=== PATIENT | female | born 1985 | race Caucasian/White ===

== ENCOUNTER 2024-09-01 18:02 | Emergency (ER) | payer BC ==
[2024-09-01 18:28] LABS: BASOPHILS ABSOLUTE AUTO 0.04 K/uL (0.00-0.20); BASOPHILS PERCENT AUTO 0.5 % (0.0-2.0); EOSINOPHILS ABSOLUTE AUTO 0.22 K/uL (0.00-0.50); EOSINOPHILS PERCENT AUTO 2.6 % (0.0-5.0); IMMATURE GRAN ABSOLUTE AUTO 0.01 10^3/uL (0.00-0.04); IMMATURE GRAN PERCENT AUTO 0.1 % (0.0-0.4); LYMPHOCYTES ABSOLUTE AUTO 1.81 K/uL (0.50-3.50); LYMPHOCYTES PERCENT AUTO 21.0 % (10.0-50.0); MONOCYTES ABSOLUTE AUTO 0.48 K/uL (0.00-1.00); MONOCYTES PERCENT AUTO 5.6 % (2.0-14.0); NEUTROPHILS ABSOLUTE AUTO 6.05 K/uL (1.40-7.00); NEUTROPHILS PERCENT AUTO 70.2 % (45.0-80.0); PLATELET COUNT,PLT 345 K/uL (150-350); RED BLOOD CELL COUNT 4.15 M/uL (3.77-5.09); RED CELL DISTRIBUTION WIDTH 13.0 % (11.2-14.1); WHITE BLOOD CELL COUNT,WBC 8.6 K/uL (4.0-10.2)
[2024-09-01] MEDS: methylPREDNISolone Sodium Succinate 125 MG/2 ML SDV IVPUSH ONE (18:34)
[2024-09-01] MEDS: Sodium Chloride 0.9% 10 ML Syringe FLUSH PRN (18:34)
[2024-09-01 18:48] LABS: BLOOD UREA NITROGEN,BUN 13 mg/dL (7-18); CARBON DIOXIDE,CO2 22.4 mmol/L (21.0-32.0); CHLORIDE,CL 101 mmol/L (98-107); CREATININE 0.78 mg/dL (0.51-1.17); GLUCOSE RANDOM 109 mg/dL (70-99); POTASSIUM,K 3.2 mmol/L (3.5-5.1); SODIUM,NA 137 mmol/L (136-145)
[2024-09-01 18:55] LABS: ESTIMATED GFR 100 mL/min (>=60)
[2024-09-01] MEDS: Potassium Chloride 10 MEQ Tab.ER PO ONE (19:06)
== END 2024-09-01 19:15 | disposition home or self-care (01) ==
LOC: LL.ED 18:02
DX: T78.40XA Allergy, unspecified, initial encounter (principal); E87.6 Hypokalemia
CPT/HCPCS: 36415; 80048; 85025; 96374; 99283-25; 99284; J2919